=== PATIENT | male | born 2000 | race Two or more races ===

== ENCOUNTER 2024-03-18 17:24 | Emergency (ER) | payer SELFPAY ==
[2024-03-18 17:31] VITALS: BP 139/70
--- NOTE | 2024-03-18 18:24 | ED.GENMED ---
History of Present Illness
General
Chief Complaint: Dental Problem
Source: patient
Exam Limitations: none
Time Seen by Provider: 03/18/24 18:08
Nursing documentation reviewed up to this point in time: agreed with
History of Present Illness
History of Present Illness:
Patient presents to ED secondary to worsening left lower tooth over the past 2 days. Denies trauma. Denies fever or chills. Denies difficulty swallowing. Denies shortness of breath. Patient states that he has had similar symptoms in the past,
requiring dental filling. Patient has not seen his dentist for quite some time.
Review of Systems
Review of Systems
Allergies reviewed?: Yes
All Other Systems: ROS reviewed and negative except as documented in HPI and ROS
Constitutional: Reports no symptoms
EENT: Reports other (toothache)
Respiratory: Reports no symptoms
ABD/GI: Reports no symptoms
Musculoskeletal: Reports no symptoms
Skin: Reports no symptoms
Neurological: Reports no symptoms
Phy Exam
Physical Exam
Physical Exam:
Physical Exam
General: no apparent distress, not acutely ill. afebrile
Head: nc/at. eomi
Neck: supple. normal range of motion. mild tenderness to palpation over #21 tooth without associated gingival swelling.
Neuro: alert and oriented. no focal neurological deficits
Skin: no rash
Psychiatric: well kept. interactive and cooperative
Extremities: no edema. no calf tenderness.
Course
Orders/Labs/Results
Orders:
Orders
03/18/24 18:23
Penicillin V Potassium [Pen Vk] 500 mg PO NOW STA
03/18/24 18:24
Ibuprofen [Motrin] 400 mg PO NOW STA
03/18/24 18:29
Ibuprofen [Motrin] 400 mg PO NOW STA
Vital Signs
Initial and Last Documented VS:
Initial Vital Signs
Temp Pulse Resp BP Pulse Ox
98.8 F 60 18 139/70 100
03/18/24 17:31 03/18/24 17:31 03/18/24 17:31 03/18/24 17:31 03/18/24 17:31
Last Documented Vital Signs
Temp Pulse Resp BP Pulse Ox
98.8 F 60 18 139/70 100
03/18/24 17:31 03/18/24 17:31 03/18/24 17:31 03/18/24 17:31 03/18/24 17:31
MDM/Problems Addressed
MDM/Problems Addressed:
Patient with nonspecific toothache, without any evidence of dental abscess nor fracture. Patient will be started empirically on Pen-Vee K, along with recommendation to follow-up with his dentist for reevaluation.
*Critical Care Note
Total Time (30-74mins, 75-104mins- exclusive of procedures): Not Applicable
ED Attending Note
-
Portions of this chart may have been created with voice recognition software.� Occasional wrong word or��sound alike� substitutions may have occurred due to the inherent limitations of voice recognition software.
Discharge Plan
Departure
Patient Disposition: Home (Routine Discharge)
Date of Disposition: 03/18/24
Time of Disposition: 18:28
Patient with high blood pressure during this ER visit?: Yes
Condition: Good
Discharge Problem:
Toothache
Instructions: Dental Pain (DC)
Prescriptions:
New
penicillin V potassium 500 mg tablet
500 mg PO TID Qty: 20 0RF
Activity Restrictions/Additional Instructions:
As discussed, please follow-up with your dentist for reevaluation. Your prescription has been sent electronically to [facility] pharmacy in [place].
Interventions
Interventions:
*Nursing Disposition Last Done: 03/18/24 18:49
Discharge Date and Time
Discharge Date/Time: 03/18/24 18:49
Print Language: [id number]
[2024-03-18] MEDS: PEN VK 500 MG PO (18:42)
[2024-03-18] MEDS: MOTRIN 400 MG PO (18:42)
== END 2024-03-18 18:49 | disposition home or self-care (01) ==
LOC: EMR 17:24
PROVIDERS: EMERGENCY PHYSICIAN Emergency Medicine
DX: K08.89 Other specified disorders of teeth and supporting structures (principal)
CPT/HCPCS: 99283